=== PATIENT | male | born 1945 | race Caucasian/White ===

== ENCOUNTER 2022-09-21 08:00 | Day surgery (SDC) | payer MEDICARE, OTHER ==
[~2022-09-21 08:00] MED LIST: LACTATED RINGERS 1,000 ML IV SCH; TETRACAINE 0.5% OPHTH (PF) DROPS 4 ML BTL OP PRN
[2022-09-21] MEDS: PHENYLEPHRINE 2.5% OPHTH DRP 2ML OP PRN ×3 (08:28→08:45)
[2022-09-21] MEDS: CYCLOPENTOLATE 1% OPHTH SOLN 2 ML BTL OP PRN ×3 (08:31→08:51)
[2022-09-21 08:38] VITALS: RESP 16; TEMP 97.8
[2022-09-21] MEDS ORDERED: GLYCOPYRROLATE 0.2 MG/ML 2 ML VIAL ONE (09:51)
[2022-09-21] MEDS ORDERED: fentaNYL (PF) 50 MCG/ML 2 ML AMP ONE (09:51)
[2022-09-21] MEDS ORDERED: MIDAZOLAM 2 MG/2 ML VIAL ONE (09:51)
[2022-09-21] MEDS ORDERED: LIDOCAINE 1% (PF) 10MG/ML VIAL MISCELLANE ONE (10:05)
[2022-09-21] MEDS ORDERED: DUOVISC KIT (GREEN BOX) INTRAOCULA ONE (10:05)
[2022-09-21] MEDS ORDERED: BALANCED SALT IRRIG SOLN COMB2 15 ML IRRIG.SOLN INTRAOCULA ONE (10:05)
[2022-09-21] MEDS: MOXIFLOXACIN HCL 0.5% DROPS 3 ML BTL OP PRN ×2 (10:16→10:21)
[2022-09-21] MEDS: TIMOLOL 0.5% OPHTH DROPS 5 ML BTL OP PRN ×2 (10:16→10:21)
--- NOTE | 2022-09-21 10:24 | P.OP ---
Date of Procedure: 09/21/22 Preoperative Diagnosis: NS & CS & PSC Postoperative Diagnosis: same Procedure(s) Performed: PIOL, OS Implants: [id number] 17.50 Anesthesia: MAC Surgeon: Ludwig Campos Pathology: none sent Condition: stable Disposition: same day Indications for Procedure: blurry vision Operative Findings: no complications
[2022-09-21 10:49] VITALS: BP 125/66; PULSE 55
--- NOTE | 2022-09-21 17:59 | OP ---
OPERATIVE REPORT DATE OF SERVICE : 09/21/2022 PROCEDURE PERFORMED: Phacoemulsification of cataract and interocular lens implant of the left eye. PREOPERATIVE DIAGNOSES: 1. Nuclear sclerosis. 2. Cortical sclerosis. 3. Posterior subcapsular cataract. POSTOPERATIVE DIAGNOSES: 1. Nuclear sclerosis. 2. Cortical sclerosis. 3. Posterior subcapsular cataract. ANESTHESIA: Topical. ESTIMATED BLOOD LOSS: None. SPECIMEN TAKEN: None. NARRATIVE: After obtaining the appropriate consent, the patient was brought to the operating room. There, he was asked to sit upright, and the axes 0 and 180 degrees were identified and marked with a gentian rosana marker on the patient's corneal limbus. He was then placed in the proper supine position, prepped and draped in the usual sterile manner, and under cardiac monitoring. He was approached from his left temporal side. Using previously-acquired corneal topography information, the axis of 162 degrees was identified and marked with a Ubiregi axis marker. At the 5 o'clock position, an MVR blade was used to create a paracentesis port. Through that opening, 1% Xylocaine MPF 50:50 mix with balanced salt solution was injected into the anterior chamber. This was followed by stabilization of the anterior chamber with Viscoat. At the 3 o'clock position, a 2.5 mm keratome was used to create a self-sealing corneal flap incision. Through this opening, a cystotome was introduced to begin a continuous tear capsulorrhexis, which was then completed using the Utrata forceps. Hydrodissection and hydrodelineation of the lens were accomplished with balanced salt solution. Phacoemulsification lens utilizing phaco chop was accomplished in 30.31 seconds at 15% power. Additional Xylocaine MPF was instilled into the anterior chamber. This was followed by removal of the remaining cortical material from in and around the intraocular lens bag as well as careful polishing of the posterior capsule in the capsule vacuum mode. An [employer], model [id number], 17.5-diopter posterior chamber intraocular lens was then inserted into the capsular bag without difficulty. The remaining viscoelastic was then removed from in and around the intraocular lens and the anterior chamber, and final alignment of the lens was at the axis of 162 degrees previously marked on the patient's corneal limbus. The eye was then brought to normal intraocular pressure through paracentesis port. The incisions were dried with a Weck- Naomi sponge, and Tisseel was used to assure watertight integrity. He then received 2 drops of 0.5% timolol followed by 2 drops of moxifloxacin. He was then lightly patched and shielded in the usual manner. There were no complications from the procedure. He tolerated the procedure well and was returned to outpatient recovery in good condition. MMRASHAD / IJN: [id number] /
== END 2022-09-21 11:08 | disposition home or self-care (01) ==
LOC: OR 08:00
PROVIDERS: ATTEND Ophthalmology
DX: H25.12 Age-related nuclear cataract, left eye (principal); E78.5 Hyperlipidemia, unspecified; Z79.899 Other long term (current) drug therapy
CPT/HCPCS: 66984; V2787; C1780; C1762; J2250; J3010; J2001

== ENCOUNTER 2022-10-05 09:33 | Day surgery (SDC) | payer MEDICARE, OTHER ==
[2022-10-03 11:20] VITALS: BMI 26.2
[~2022-10-05 09:33] MED LIST changes: -LACTATED RINGERS 1,000 ML IV SCH; +MOXIFLOXACIN HCL 0.5% DROPS 3 ML BTL OP PRN; +TIMOLOL 0.5% OPHTH DROPS 5 ML BTL OP PRN
[2022-10-05] MEDS ORDERED: LACTATED RINGERS 1,000 ML IV SCH (10:17)
[2022-10-05] MEDS: CYCLOPENTOLATE 1% OPHTH SOLN 2 ML BTL OP PRN ×3 (11:15→11:30)
[2022-10-05] MEDS: PHENYLEPHRINE 2.5% OPHTH DRP 2ML OP PRN ×3 (11:18→11:34)
[2022-10-05 11:19] VITALS: TEMP 97.8
[2022-10-05] MEDS ORDERED: fentaNYL (PF) 50 MCG/ML 2 ML AMP ONE (12:46)
[2022-10-05] MEDS ORDERED: MIDAZOLAM 2 MG/2 ML VIAL ONE (12:46)
[2022-10-05] MEDS ORDERED: EPINEPHrine (PF) 0.3 ML in BALANCED SALT IRRIG SOLN COMB2 500 ML IRRIGATION ONE (12:49)
[2022-10-05] MEDS ORDERED: BALANCED SALT IRRIG SOLN COMB2 15 ML IRRIG.SOLN INTRAOCULA ONE (12:50)
[2022-10-05] MEDS ORDERED: DUOVISC KIT (GREEN BOX) INTRAOCULA ONE (12:50)
[2022-10-05] MEDS ORDERED: LIDOCAINE 1% (PF) 10MG/ML VIAL MISCELLANE ONE (12:51)
--- NOTE | 2022-10-05 13:12 | P.OP ---
Date of Procedure: 10/05/22 Preoperative Diagnosis: NS & CS and reg astigm. Postoperative Diagnosis: same Procedure(s) Performed: PIOL, OD Implants: [id number] 16.50 Anesthesia: MAC Surgeon: Ludwig Campos Pathology: none sent Condition: stable Disposition: same day Indications for Procedure: blurry vision Operative Findings: no complications
[2022-10-05 13:40] VITALS: BP 137/78; PULSE 51; RESP 18
--- NOTE | 2022-10-05 19:50 | OP ---
OPERATIVE REPORT DATE OF SERVICE : 10/05/2022 PROCEDURE PERFORMED: Phacoemulsification of cataract and intraocular lens implant of the right eye. PREOPERATIVE DIAGNOSES: 1. 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 POSTOPERATIVE DIAGNOSES: 1. 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 ANESTHESIA: Topical. ESTIMATED BLOOD LOSS: None. SPECIMEN TAKEN: None. NARRATIVE: After obtaining the appropriate consent, the patient was brought to the operating room. There, he was asked to sit upright, and the axes of 0 and 180 degrees was identified and marked with a gentian rosana marker. He was then placed in the proper supine position under cardiac monitoring and prepped and draped in the usual sterile manner. He was approached from his right temporal side using previously acquired corneal topography information, the axis of 175 degrees was identified and marked with a [employer] axis marker. At the 11 o'clock position, an MVR blade was used to create a paracentesis port. Through this opening, 1% Xylocaine MPF 50:50 mix with balanced salt solution was injected into the anterior chamber. This was followed by stabilization of the anterior chamber with Viscoat. At the 9 o'clock position, 2.5 mm keratome was used to create a self-sealing corneal flap incision. Through this opening, a cystotome was introduced to begin a continuous tear capsulorrhexis, which was then completed using the Utrata forceps. Hydrodissection and hydrodelineation of the lens were accomplished with balanced salt solution. Phacoemulsification lens utilizing phaco chop was accomplished in 22.47 seconds at 11% power. Additional Xylocaine MPF was instilled into the anterior chamber. This was followed by removal of the remaining cortical material as well as careful polishing of the posterior capsule in the capsule vacuum mode. Provisc was then used to stabilize the capsular bag and an [employer] IOL model [id number], 16.5 diopter posterior chamber intraocular lens was then inserted into the capsular bag without difficulty. The remaining viscoelastic was removed from in and around the intraocular lens and final positioning of the lens was aligned with the previously noted axis of 175 degrees. The eye was brought to normal intraocular pressure through the paracentesis port. All wounds were confirmed watertight. He then received 2 drops of 0.5% timolol followed by 2 drops of moxifloxacin. He was then laid lightly patched and shielded in the usual manner. There were no complications from the procedure. He tolerated the procedure well and was returned to outpatient recovery in good condition. MMRASHAD / KATERINA: [id number] /
== END 2022-10-05 13:47 | disposition home or self-care (01) ==
LOC: OR 09:33
PROVIDERS: ATTEND Ophthalmology
DX: H25.11 Age-related nuclear cataract, right eye (principal); H25.011 Cortical age-related cataract, right eye; H52.221 Regular astigmatism, right eye; E78.5 Hyperlipidemia, unspecified; F10.20 Alcohol dependence, uncomplicated; Z79.52 Long term (current) use of systemic steroids
CPT/HCPCS: 66984; V2787; C1780; J2250; J0171; J3010; J2001